=== PATIENT | male | born 1950 | race Caucasian/White ===

== ENCOUNTER 2018-10-09 10:15 | Emergency (ER) | payer MEDICARE ==
[2018-10-09] MEDS ORDERED: NS 0.9% 1000 ML** 1,000 ML IV ONE (10:34)
--- NOTE | 2018-10-09 10:35 | ED ---
Abdominal Pain/Male - HPI Summary HPI Summary: Patient is a 68-year-old male who presents emergency department for right lower quadrant abdominal pain times one week. Patient denies any falls or heavy lifting. Patient notes he had an appendectomy as a child. Patient denies fever , chills, nausea, vomiting, diarrhea, constipation. Patient notes he follows with GI and has routine colonoscopies every 5 years. Patient notes inguinal hernia repair as well. Symptoms are moderate in severity. Pain is worse with movement and touching the area. Lying still makes symptoms better. Denies associated symptoms of chest pain, shortness of breath. - History of Current Complaint Chief Complaint: EDAbdPain Stated Complaint: ABD PAIN Time Seen by Provider: 10/09/18 10:24 Hx Obtained From: Patient Pain Intensity: 6 - Allergies/Home Medications Allergies/Adverse Reactions: Allergies Allergy/AdvReac Type Severity Reaction Status Date / Time Penicillins Allergy Swelling Verified 10/09/18 10:19 Sulfa (Sulfonamide Allergy Unknown Verified 10/09/18 10:19 Antibiotics) Reaction Details MILK Allergy Rash Uncoded 10/09/18 10:19 Home Medications: Home Medications Atorvastatin* [Lipitor*] 20 mg PO DAILY 10/09/18 [History Confirmed 10/09/18] Esomeprazole Magnesium [Nexium 24Hr] 20 mg PO DAILY 10/09/18 [History Confirmed 10/09/18] Hydrochlorothiazide TAB* [Hydrodiuril TAB*] 25 mg PO DAILY 10/09/18 [History Confirmed 10/09/18] Irbesartan 300 mg PO DAILY 10/09/18 [History Confirmed 10/09/18] PMH/Surg Hx/FS Hx/Imm Hx Cardiovascular History: Reports: Hx Coronary Artery Disease - HYPERCHOLESTEROLEMIA, Hx Hypercholesterolemia, Hx Hypertension - ON MEDICATION GI History: Reports: Hx Gastroesophageal Reflux Disease - ON MEDICATION Musculoskeletal History: Reports: Hx Tendonitis - LEFT ANKLE REGION-RECURRENT Sensory History: Reports: Hx Contacts or Glasses - GLASSES Denies: Hx Hearing Aid Opthamlomology History: Reports: Hx Contacts or Glasses - GLASSES - Surgical History Surgery Procedure, Year, and Place: HERNIA REPAIR 2000 & 2002 [facility]. TRIGGER FINGER 2002 & 2004 [facility]. APPY-1978 [facility] [place] Hx Anesthesia Reactions: No Infectious Disease History: No Infectious Disease History: Denies: Traveled Outside the [place] in Last 30 Days - Social History Alcohol Use: Daily Substance Use Type: Reports: None Smoking Status (MU): Former Smoker Review of Systems Constitutional: Negative Negative: Fever, Chills Cardiovascular: Negative Negative: Chest Pain Respiratory: Negative Negative: Shortness Of Breath Positive: Abdominal Pain. Negative: Vomiting, Diarrhea, Nausea Genitourinary: Negative Negative: dysuria Musculoskeletal: Negative Skin: Negative Neurological: Negative All Other Systems Reviewed And Are Negative: Yes Physical Exam Triage Information Reviewed: Yes Vital Signs On Initial Exam: Initial Vitals Temp Pulse Resp BP Pulse Ox 97.3 F 73 16 125/86 95 10/09/18 10:16 10/09/18 10:16 10/09/18 10:16 10/09/18 10:16 10/09/18 10:16 Vital Signs Reviewed: Yes Appearance: Positive: Well-Appearing - Pt. lying on bed in NAD. present. Skin: Positive: Warm, Dry Head/Face: Positive: Normal Head/Face Inspection Eyes: Positive: Normal, EOMI, BERNARDA Neck: Positive: Supple Respiratory/Lung Sounds: Positive: Clear to Auscultation, Breath Sounds Present Cardiovascular: Positive: Normal, RRR Abdomen Description: Positive: Other: - Abd. is soft with marked tenderness and guarding to RLQ.. Negative: CVA Tenderness (R), CVA Tenderness (L) Musculoskeletal: Positive: Normal, Strength/ROM Intact Neurological: Positive: Normal, CN Intact II-III Psychiatric: Positive: Affect/Mood Appropriate Diagnostics - Vital Signs Vital Signs Temp Pulse Resp BP Pulse Ox 10/09/18 10:16 97.3 F 73 16 125/86 95 - Laboratory Result Diagrams: 10/09/18 10:40 10/09/18 10:40 Lab Statement: Any lab studies that have been ordered have been reviewed, and results considered in the medical decision making process. Abdominal Pain Male Course/Dx - Course Course Of Treatment: Pt. presenting with marked tenderness to RLL. He is afebrile with stable VS. Pt. declines pain medication. Labs are unremarkable. CT abd/pelvis per radiology: IMPRESSION: 1. FINDINGS MOST CONSISTENT WITH EPIPLOIC APPENDAGITIS ADJACENT TO THE ASCENDING COLON. 2. SMALL MASS WITHIN THE URINARY BLADDER SUSPICIOUS FOR A BLADDER CARCINOMA RECOMMEND. UROLOGIC CONSULTATION. 3. HEPATIC STEATOSIS. Will treat concervatively with ibuprofen. Results discussed with pt. and . Bladder mass is a new finding today. I initially consulted urology, Dr. Escamilla, who agrees to f.u pt. in office but pt. would prefer to f.u at [facility]. Advised pt. to call his PCP today for urology referral MICHAEL. To return to ER for increased pain, fever, vomiting or if concerned. Pt. and understand and agree with plan. - Diagnoses Provider Diagnoses: Bladder mass, Epiploic appendagitis Discharge - Sign-Out/Discharge Documenting (check all that apply): Patient Departure Patient Received Moderate/Deep Sedation with Procedure: No - Discharge Plan Condition: Good Disposition: HOME Referrals: Vaughn Lewis MD [Primary Care Provider] - David Escamilla MD [Medical Doctor] - Additional Instructions: Call your PCP today for a close follow up appointment and for referral to urology Take ibuprofen 400mg-600mg every 8 hours x 1 week Return to ER for increased pain, fever, vomiting, or if concerned - Billing Disposition and Condition Condition: GOOD Disposition: Home - Attestation Statements Provider Attestation: I was available for consult. This patient was seen by the [facility]. The patient was not presented to, seen by, or examined by me. -Sharron
[2018-10-09 10:49] LABS: Hematocrit 44 % (42-52); Mean Corpuscular HGB Conc 34 g/dL (31-36); Mean Corpuscular Hemoglobin 30 pg (27-31); Mean Corpuscular Volume 87 fL (80-94); Mean Platelet Volume 7.8 fL (7.4-10.4); Platelet Count 279 10^3/uL (150-450); Red Blood Count 5.08 10^6 /uL (4.18-5.48); Red Cell Distribution Width 14 % (10-15); White Blood Count 9.3 10^3/uL (3.5-10.8)
[2018-10-09 11:11] LABS: Albumin 4.2 g/dL (3.2-5.2); Albumin/Globulin Ratio 1.4 (1-3); BUN/Creatinine Ratio 24.2 (8-20); C Reactive Protein 18.64 mg/L (<8.01); Calcium 9.7 mg/dL (8.6-10.3); EGFR African American 90.7 (>60); Potassium 4.1 mmol/L (3.5-5.0); Total Bilirubin 0.5 mg/dL (0.2-1.0); Total Protein 7.2 g/dL (6.4-8.9)
[2018-10-09] MEDS ORDERED: Iohexol 300* (CONTRAST) 10 ML SDV IV ONE (11:19)
[2018-10-09 11:30] LABS: ABS Basophils 0.1 10^3/ul (0-0.2); ABS Eosinophils 0.1 10^3/ul (0-0.6); ABS Lymphocytes 1.4 10^3/ul (1.0-4.8); ABS Monocytes 0.9 10^3/ul (0-0.8); ABS Neutrophils 6.8 10^3/ul (1.5-7.7); Eosinophil % 1.3 %
[2018-10-09 13:35] VITALS: BP 151/83
== END 2018-10-09 13:30 | disposition home or self-care (01) ==
LOC: ED 10:15
DX: N32.9 Bladder disorder, unspecified (principal); K63.89 Other specified diseases of intestine; K76.0 Fatty (change of) liver, not elsewhere classified; I25.10 Atherosclerotic heart disease of native coronary artery without angina pectoris; I10 Essential (primary) hypertension; E78.00 Pure hypercholesterolemia, unspecified; K21.9 Gastro-esophageal reflux disease without esophagitis; Z87.891 Personal history of nicotine dependence; Z88.0 Allergy status to penicillin; Z88.2 Allergy status to sulfonamides; Z79.899 Other long term (current) drug therapy
CPT/HCPCS: 36415; 74177; 80053; 83605; 83690; 85025; 86140; 96360; 99283; Q9967

== ENCOUNTER 2020-06-10 10:04 | Observation (INO) ==
[2020-06-10 11:17] LABS: ABS Basophils 0.1 10^3/ul (0-0.2); ABS Eosinophils 0.1 10^3/ul (0-0.6); ABS Lymphocytes 1.3 10^3/ul (1.0-4.8); ABS Monocytes 0.7 10^3/ul (0-0.8); ABS Neutrophils 7.2 10^3/ul (1.5-7.7); Eosinophil % 0.6 %; Hematocrit 49 % (42-52); Hemoglobin 16.6 g/dL (14.0-18.0); Lymphocyte % 14.1 %; Mean Corpuscular HGB Conc 34 g/dL (31-36); Mean Corpuscular Hemoglobin 30 pg (27-31); Mean Corpuscular Volume 88 fL (80-94); Mean Platelet Volume 7.9 fL (7.4-10.4); Platelet Count 279 10^3/uL (150-450); Red Blood Count 5.61 10^6 /uL (4.18-5.48); Red Cell Distribution Width 14 % (10-15); White Blood Count 9.4 10^3/uL (3.5-10.8)
[2020-06-10 11:30] LABS: Albumin 4.5 g/dL (3.2-5.2); Calcium 9.7 mg/dL (8.6-10.3); Potassium 4.4 mmol/L (3.5-5.0); Total Bilirubin 0.6 mg/dL (0.2-1.0)
[2020-06-10 11:35] LABS: Albumin/Globulin Ratio 1.7 (1-3); BUN/Creatinine Ratio 17.3 (8-20); EGFR African American 85.2 (>60); EGFR Non-African American 70.4 (>60); Globulin 2.7 g/dL (2-4); Total Protein 7.2 g/dL (6.4-8.9)
[2020-06-10] MEDS ORDERED: NS 0.9% 1000 ml BAG 1,000 ML IV ONE (11:37)
[2020-06-10] MEDS ORDERED: Iohexol 350 (CONTRAST) 500 ML MDV IV ONE (12:23)
[2020-06-10] MEDS ORDERED: Ondansetron 4 mg VIAL 2 MG/ML 2 ml VIAL IV PRN (13:43)
[2020-06-10] MEDS ORDERED: Al Hydrox/Mg Hydrox/Simet LIQ 30 ML UDC PO PRN (13:43)
[2020-06-10 13:45] LABS: TSH Ultra Thyroid Stim Horm 0.66 mcIU/mL (0.34-5.60)
[2020-06-10] MEDS ORDERED: Aspirin EC 325 mg TAB.EC PO ONE (13:47)
[2020-06-10 14:19] LABS: HDL Cholesterol 59.9 mg/dL; Magnesium 2.1 mg/dL (1.9-2.7)
[2020-06-10] MEDS ORDERED: NS 0.9% 1000 ml BAG 1,000 ML IV SCH (18:15)
[2020-06-10] MEDS ORDERED: Enoxaparin 40 MG/0.4 ML SYR SUBCUT SCH (21:00)
[2020-06-11 08:35] LABS: ABS Basophils 0.1 10^3/ul (0-0.2); ABS Eosinophils 0.1 10^3/ul (0-0.6); ABS Lymphocytes 1.8 10^3/ul (1.0-4.8); ABS Monocytes 0.7 10^3/ul (0-0.8); ABS Neutrophils 5.4 10^3/ul (1.5-7.7); Eosinophil % 1.6 %; Hematocrit 47 % (42-52); Hemoglobin 15.5 g/dL (14.0-18.0); Lymphocyte % 21.9 %; Mean Corpuscular HGB Conc 33 g/dL (31-36); Mean Corpuscular Hemoglobin 29 pg (27-31); Mean Corpuscular Volume 88 fL (80-94); Mean Platelet Volume 7.7 fL (7.4-10.4); Platelet Count 263 10^3/uL (150-450); Red Blood Count 5.29 10^6 /uL (4.18-5.48); Red Cell Distribution Width 14 % (10-15)
[2020-06-11 08:51] LABS: BUN/Creatinine Ratio 14.1 (8-20); Calcium 9.2 mg/dL (8.6-10.3); EGFR African American 90.2 (>60); EGFR Non-African American 74.5 (>60); Magnesium 2.1 mg/dL (1.9-2.7); Potassium 4.1 mmol/L (3.5-5.0)
[2020-06-11] MEDS ORDERED: Aspirin EC 81 mg TAB.EC (enteric coated) PO SCH (09:00)
[2020-06-11 12:03] VITALS: BP 127/61
== END 2020-06-11 13:15 | disposition home or self-care (01) ==
LOC: ED 10:04 → MEDTELE 10:04
PROVIDERS: ADMIT Pediatrics; ATTEND Pediatrics

== ENCOUNTER 2021-01-13 07:41 | Observation (INO) ==
[~2021-01-13 07:41] MED LIST: Buffered Lidocaine 1% SYRIN 1 ml INTRADERM ONE; Lactated Ringers 1000 ml BAG 1,000 ML IV SCH
[2021-01-13] MEDS ORDERED: Clindamycin 900 MG/D5W BAG 900 MG/50 ML BAG IVPB ONE (07:57)
[2021-01-13] MEDS ORDERED: Midazolam 2 mg/2 ml VIAL 1 mg/ml 2 ml VIAL (2 mg) ONE (10:08)
[2021-01-13] MEDS ORDERED: Phenylephrine 40 mcg/mL 10mL (400mcg) SYRINGE ONE (10:30)
[2021-01-13] MEDS ORDERED: Phenylephrine IV 10 MG/ML 1 ml VIAL ONE (10:30)
[2021-01-13] MEDS ORDERED: Ondansetron 4 mg VIAL 2 MG/ML 2 ml VIAL ONE (11:32)
[2021-01-13] MEDS ORDERED: Propofol 10 MG/ML 20 ML BTL ONE (11:45)
[2021-01-13] MEDS ORDERED: diPHENhydraMINE IV 50 MG/ML 1 ml VIAL (BENADRYL) IV PRN (12:04)
[2021-01-13] MEDS ORDERED: Ondansetron 4 mg VIAL 2 MG/ML 2 ml VIAL IV PRN (12:04)
[2021-01-13] MEDS ORDERED: Lactulose 30 ml UDC PO PRN (12:04)
[2021-01-13] MEDS ORDERED: Ondansetron ODT 4 mg TAB 4 MG TAB PO PRN (12:04)
[2021-01-13] MEDS ORDERED: diPHENhydraMINE 25 mg TAB PO PRN (12:04)
[2021-01-13] MEDS ORDERED: Magnesium Hydroxide LIQ 30 ML UDC PO PRN (12:04)
[2021-01-13] MEDS ORDERED: Naloxone 0.4 mg VIAL 0.4 mg/ml 1 ml VIAL IV PRN (13:31)
[2021-01-13] MEDS ORDERED: Morphine 4 MG/ML VIAL (1 ml) IV PRN (13:31)
[2021-01-13] MEDS ORDERED: fentaNYL 100 mcg/2 ml 50 MCG/ML VIAL IV PRN (13:31)
[2021-01-13] MEDS: Lactated Ringers 1000 ml BAG 1,000 ML IV SCH (15:06)
[2021-01-13] MEDS: Clindamycin 600 MG/D5W BAG 600 MG/50 ML BAG IV SCH (18:13)
[2021-01-13] MEDS: Magnesium Hydroxide LIQ 30 ML UDC PO SCH (21:13)
[2021-01-14] MEDS: Lactated Ringers 1000 ml BAG 1,000 ML IV SCH (01:41)
[2021-01-14] MEDS: Clindamycin 600 MG/D5W BAG 600 MG/50 ML BAG IV SCH ×2 (02:23→11:03)
[2021-01-14 06:56] LABS: Hematocrit 37 % (42-52); Hemoglobin 12.5 g/dL (14.0-18.0); Mean Platelet Volume 7.9 fL (7.4-10.4); Platelet Count 226 10^3/uL (150-450)
[2021-01-14 07:12] LABS: Calcium 8.7 mg/dL (8.6-10.3); Potassium 3.8 mmol/L (3.5-5.0)
[2021-01-14] MEDS: Magnesium Hydroxide LIQ 30 ML UDC PO SCH (08:54)
[2021-01-14] MEDS ORDERED: Vitamin THERAPEUTIC TAB PO SCH (09:00)
[2021-01-14 11:29] VITALS: BP 104/64
== END 2021-01-14 15:20 | disposition home or self-care (01) ==
LOC: AA 07:41 → INTOOBSV 07:41 → SSU 14:40
PROVIDERS: ADMIT Orthopaedic Surgery Adult Reconstructive Orthopaedic Surgery; ATTEND Orthopaedic Surgery Adult Reconstructive Orthopaedic Surgery